=== PATIENT | male | born 2005 | race Caucasian/White ===

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

== ENCOUNTER 2025-01-15 03:23 | Emergency (ER) | payer OTHER ==
[~2025-01-15] VITALS: Ht 172.7 cm; Wt 70.3 kg
[~2025-01-15 03:23] MED LIST changes: +ALMACONE SUSPE355 ML PO; +FAMO20 PO
[2025-01-15] MEDS ORDERED: HYDROmorphone HCl/Pf 1MG SYR IV ONE ×2 (03:40→04:45)
[2025-01-15 04:05] LABS: BASOPHILS ABSOLUTE AUTO 0.10 K/mm3 (0.00-0.23); BASOPHILS PERCENT AUTO 1 % (0-2); EOSINOPHILS ABSOLUTE AUTO 0.20 K/mm3 (0.00-0.68); EOSINOPHILS PERCENT AUTO 2 % (0-6); Hematocrit 38.6 % (37.0-53.0); Hemoglobin 12.7 g/dL (13.5-17.5); IMMATURE GRAN ABSOLUTE AUTO 0.04 K/mm3 (0.00-0.10); IMMATURE GRAN PERCENT AUTO 0 % (0-1); LYMPHOCYTES ABSOLUTE AUTO 2.93 K/mm3 (0.84-5.20); LYMPHOCYTES PERCENT AUTO 21 % (21-46); MONOCYTES ABSOLUTE AUTO 0.94 K/mm3 (0.16-1.47); MONOCYTES PERCENT AUTO 7 % (4-13); Mean Corpuscular HGB Conc 32.9 g/dL (31.5-36.5); Mean Corpuscular Volume 90 fL (80-100); NEUTROPHILS ABSOLUTE AUTO 9.48 K/mm3 (1.96-9.15); NEUTROPHILS PERCENT AUTO 69 % (41-73); NRBC ABSOLUTE 0.00 K/mm3 (0.00-0.02); NRBC Auto 0.0 /100 WBC (0.0-0.2); Platelet Count 274 K/mm3 (150-400); RDW Coefficient Variation 12.2 % (11.7-14.2); RDW Standard Deviation 40.3 fL (35.1-46.3)
[2025-01-15 04:21] LABS: Prothrombin Time Results 11.4 Sec (9.7-11.5)
[2025-01-15 04:24] LABS: Alanine Aminotransfer (ALT/SGP 28 U/L (12-78); Albumin, Blood 3.9 g/dL (3.4-5.0); Albumin/Globulin Ratio 1.3 (0.8-1.8); Anion Gap 9 mmol/L (3-11); Aspartate Aminotrans (AST/SGOT 22 U/L (12-37); Bilirubin, Total 0.3 mg/dL (0.1-1.0); Blood Urea Nitrogen 16 mg/dL (8-21); CO2, Blood 27 mmol/L (21-32); Calcium, Blood 8.7 mg/dL (8.5-10.1); Chloride, Blood 106 mmol/L (98-108); Creatinine, Blood 0.94 mg/dL (0.60-1.20); Ethanol (Alcohol), Blood, Med <3 mg/dL; Globulin, Blood 3.0 g/dL (2.2-4.0); Glucose, Blood 134 mg/dL (70-99); Potassium, Blood 3.3 mmol/L (3.5-5.5); Sodium, Blood 139 mmol/L (136-145); Total Protein, Blood 6.9 g/dL (6.4-8.2)
[2025-01-15] MEDS ORDERED: Robaxin750 MG PO (05:53)
[2025-01-15] MEDS ORDERED: RX Prepack 6 Tabs Oxycodone 5mg UD ONE (05:55)
[2025-01-15] MEDS ORDERED: AMOCLA875 PO (05:57)
[2025-01-15 06:00] VITALS: BP 130/62
== END 2025-01-15 06:27 | disposition home or self-care (01) ==
LOC: ER 03:23
PROVIDERS: Student in an Organized Health Care Education/Training Program
DX: S02.40EA Zygomatic fracture, right side, initial encounter for closed fracture (principal); S02.2XXA Fracture of nasal bones, initial encounter for closed fracture; S02.611A Fracture of condylar process of right mandible, initial encounter for closed fracture; S42.401A Unspecified fracture of lower end of right humerus, initial encounter for closed fracture; Y04.8XXA Assault by other bodily force, initial encounter; J45.909 Unspecified asthma, uncomplicated; Z23 Encounter for immunization
CPT/HCPCS: 70450; 70486; 72125; 73060; 80053; 80320; 85025; 85610; 85730; 86850; 86900; 86901; 96361; 96374; 96376; 99284-25; A9270; J1171; J7120

== ENCOUNTER 2025-01-25 09:26 | Day surgery (SDC) | payer OTHER ==
[~2025-01-25] VITALS: Ht 170.2 cm; Wt 66.6 kg
[2025-01-25] VITALS (24 sets, daily range): BP systolic 100–152; BP diastolic 53–93
[~2025-01-25 09:26] MED LIST changes: +AMOCLA875 PO; +OXYC5 PO; +Robaxin750 MG PO
[2025-01-25] MEDS ORDERED: Ondansetron HCl 2 MG / ML 2ML Vial ONE (10:38)
[2025-01-25] MEDS ORDERED: Rocuronium Bromide 10 MG/ML 5ML Injection IV ONE ×2 (10:38→12:28)
[2025-01-25] MEDS ORDERED: Dexamethasone Sod Phos 10 MG/ML 1ML VIAL ONE (10:38)
[2025-01-25] MEDS ORDERED: Bupivacaine 0.5% HCl 5 MG/ML 30MLVIAL ONE (10:38)
[2025-01-25] MEDS ORDERED: FentaNYL Citrate 50 MCG/ML 2 ML Injection ONE (10:38)
[2025-01-25] MEDS ORDERED: CeFAZolin Sodium 2,000 MG in NS 100 ML IV SCH ×2 (10:40→20:30)
[2025-01-25] MEDS ORDERED: CeFAZolin Sodium 2,000 MG VIAL ONE (11:04)
[2025-01-25] MEDS ORDERED: Bupivacaine 0.5% W/EPI 1:200000 SDV 30 ML Vial ONE (11:21)
[2025-01-25] MEDS ORDERED: Midazolam HCl 1MG / ML 2ML Vial ONE (11:34)
--- NOTE | 2025-01-25 11:39 | NUR ---
TIME OUT FOR SUPRACLAVICULAR NERVE BLOCK. DR STARK GIVING MEDICATIONS FOR SEDATION. MONITOR ON, 2L O2/NC INTACT. BROTHER, TENISHA, AT BEDSIDE TO HELP KEEP PATIENT CALM. PATIENT REPORTS BEING AFRAID OF NEEDLES. START TIME FOR BLOCK AT 1148, STOPE 1150. PATIENT TOLERATED WELL.
[2025-01-25] MEDS ORDERED: Bupivacaine 0.5% Inj 10 ML Vial ONE ×2 (11:41→11:42)
[2025-01-25] MEDS ORDERED: Sugammadex Sodium 200 MG/2ML SDV (100 MG/ML) ONE (12:29)
[2025-01-25] MEDS ORDERED: Vancomycin HCl 1000 MG ADDvantage ONE (17:01)
[2025-01-25] MEDS ORDERED: HYDROmorphone HCl/Pf 1MG SYR ONE ×2 (17:22→18:49)
[2025-01-25] MEDS ORDERED: HYDROmorphone HCl/Pf 1MG SYR IV PRN ×2 (18:50)
[2025-01-25] MEDS ORDERED: Albuterol 2.5 MG/3 ML VIAL INH PRN (18:50)
[2025-01-25] MEDS ORDERED: LORazepam 2 MG/ML 1ML Injection IV PRN (18:50)
[2025-01-25] MEDS ORDERED: Labetalol HCL 5 MG/ML 4ML Injection (Single Dose) IV PRN (18:50)
[2025-01-25] MEDS ORDERED: Ondansetron HCl 2 MG / ML 2ML Vial IV PRN (18:55)
[2025-01-25] MEDS ORDERED: HydrALAZINE HCl 20 MG / ML 1ML Vial IV PRN (18:55)
[2025-01-25] MEDS ORDERED: FentaNYL Citrate 50 MCG/ML 2 ML Injection IV PRN ×2 (18:55)
[2025-01-26 00:11] VITALS: BP 130/65
[2025-01-26] MEDS ORDERED: Morphine Sulfate 4 MG/1 ML Injection IV PRN (03:00)
--- NOTE | 2025-01-26 03:05 | NUR ---
INCREASED PAIN PT REPORTING INCREASED PAIN IN RIGHT ARM 9/10. TOO SOON FOR PT TO RECEIVE OXYCODONE, NOTHING ELSE AVALIBLE TO GIVE FOR PAIN. PT REPORTS THAT HE NEEDS SOMETHING ELSE FOR PAIN, AND IS ALSO REQUESTING SOMETHING FOR SLEEP. DR. KENNEDY CALLED AND NOTIFIED. RECEIVED ORDER FOR MORPHINE FOR BREAKTHROUGH AND MELATONIN.
--- NOTE | 2025-01-26 04:52 | NUR ---
SHIFT SUMMARY PT POD O R ORIF OF ARM. PT HAS HAD INTERMITTENT PAIN T/O THE NIGHT, REQUIRING IV MORPHINE FOR BREAKTHROUGH. OXYCODONE Q4HR. GOLF CADDY NOTIFIED, SEE PREVIOUS NURSES NOTE. NON PHARM INTERVENTIONS OFFERED WELL, REPOSITIONING, AND ICE. PT DECLINES ICE, AGREEABLE TO REPOSITIONING WITH PILLOWS. PT MOOD LABILE, IRRITABLE AT TIMES. TEARFUL. HE IS HEARD AT THE BEGINNING OF THE SHIFT POST OP, TALKING LOUDLY AND CURSING ON THE PHONE WITH HIS CONTACTS. PT HAS CONCERNS ABOUT THE COST OF STAYING OVERNIGHT, AND EARLIER IN SHIFT CONSIDERED LEAVING AMA. BUT THEN AGREEDED TO STAY. PT R ARM IS IN SLING T/O THE SHIFT. IT IS NOTED THAT THE LOWER STRAP OF SLING IS MISSING, IT IS NOT IN ROOM. POSSIBLY LOST IN OR OR PACU. NO REPLACEMENT ON UNIT. FLEET MAINTENANCE MANAGER AWARE. PT MADE AWARE THAT IT WILL BE FOLLOWED UP ON DAYSHIFT SO THAT IT CAN BE LOCATED OR A REPLACEMENT GIVEN IF NEEDED. ARM APPEARS WELL SUPPORTED IN SLING. SURGICAL DRESSING INTACT. PT DENIES NT. EXT WARM. POST OP VITALS STABLE. PT UP AND AMBULATING VOIDING, TOLERATING PO INTAKE. IV ANTIBIOTICS. BED IN LOWEST POSITION, CALL LIGHT WITHIN REACH.
[2025-01-26 07:29] VITALS: BP 130/69
[2025-01-26 09:39] VITALS: BP 134/64
--- NOTE | 2025-01-26 09:47 | NUR ---
DISCHARGED SPOKE TO DR ORTEGA AND REC'D TELEPHONE ORDERS TO DC PT. REVIEWED DC INSTRUCTIONS W/PT WHO IS ANXIOUS TO DC D/T RIDE AVAILABILITY. VERBALIZED UNDERSTANDING OF DC INSTRUCTIONS. LEFT UNIT IN WC W/POSSESSIONS AND DC PAPERWORK, ACCOMPANIED BY FRIEND TO MEET RIDE OUTSIDE.
== END 2025-01-26 09:49 | disposition home or self-care (01) ==
LOC: ORSCMMR 09:26 → ORD 10:30 → ORSCMMR 10:30 → SURS 19:35 → ORSCMMR 01-26 09:49
PROVIDERS: Orthopaedic Surgery
PROC: 0PSF04Z Reposition Right Humeral Shaft with Internal Fixation Device, Open Approach (ICD-10-PCS; principal; 2025-01-25 10:30)
DX: S42.351A Displaced comminuted fracture of shaft of humerus, right arm, initial encounter for closed fracture (principal); Y08.89XA Assault by other specified means, initial encounter; F17.210 Nicotine dependence, cigarettes, uncomplicated; J45.909 Unspecified asthma, uncomplicated
CPT/HCPCS: A9270; C1713; J0690; J1100; J1171; J2250; J2270; J2405; J2704; J3010; J3373; J7120